=== PATIENT | male | born 1990 | race Caucasian/White ===

== ENCOUNTER 2020-04-12 14:06 | Observation (INO) ==
[2020-04-12] MEDS ORDERED: Ondansetron ODT 4 MG TAB.RAPDIS SL ONE (14:48)
[2020-04-12] MEDS ORDERED: CloNIDine Patch 0.1 MG PATCH (WEEKLY) TD STA (14:48)
[2020-04-12] MEDS ORDERED: hydrOXYzine pamoate 25 MG CAPSULE PO STA (14:49)
[2020-04-12 14:52] LABS: Bilirubin,Urine Negative (Negative); Blood,Urine Negative (Negative); Clarity,Urine Clear (Clear); Color,Urine Light-Yellow (Yellow); Glucose,Urine (UA) Normal (Normal); Ketones,Urine Negative (Negative); Leukocyte Esterase,Urine Negative (Negative); Nitrite,Urine Negative (Negative); PH,Urine 7.5 pH Units (5.0-8.0); Protein,Urine Trace mg/dL (Neg-Trace); Specific Gravity,Urine 1.018 (1.010-1.025); Urobilinogen,Urine Normal (Normal)
[2020-04-12] MEDS ORDERED: cloNIDine HCL 0.1 MG TABLET PO ONE (14:52)
[2020-04-12 15:02] LABS: Basophils # 0.1 K/mcL (0.0-0.2); Basophils % 0.5 %; Eosinophils % 0.3 %; Hematocrit 41.5 % (37.5-50.1); Immature Granulocytes % 0.3 % (0-4); Lymphocytes # 2.4 K/mcL (0.6-4.6); Lymphocytes % 24.2 %; Mean Corpuscular HGB Conc 33.7 g/dL (31.6-35.5); Mean Corpuscular Volume 85.9 fL (83.0-100.0); Monocytes # 0.5 K/mcL (0.0-1.3); Monocytes % 5.3 %; Platelet Count 313 K/mcL (140-400); Red Blood Count 4.83 M/mcL (4.19-5.50); Red Cell Distribution Width 12.5 % (11.5-14.5); Segmented Neutrophils % 69.4 %; White Blood Count 10.1 K/mcL (4.3-11.1)
[2020-04-12 15:04] LABS: Amphetamine Screen,Urine Positive ng/mL (Cutoff=1000); Barbiturate Screen,Urine Negative ng/mL (Cutoff=200); Benzodiazepines Screen,Urine Negative ng/mL (Cutoff=200); Cannabinoid Screen,Urine Negative ng/mL (Cutoff = 50); Cocaine Screen,Urine Negative ng/mL (Cutoff= 300); Opiate Screen,Urine Negative ng/mL (Cutoff=300); Phencyclidine Screen,Urine Negative ng/mL (Cutoff=25)
[2020-04-12 15:22] LABS: Acetaminophen < 10 mcg/mL (10-20); BUN/Creatinine Ratio 19 (6-26); Blood Urea Nitrogen 15 mg/dL (6-20); Calcium 10.1 mg/dL (8.6-10.3); Carbon Dioxide 25 mEq/L (23-29); Chloride 109 mEq/L (98-107); Chol/HDL Ratio 3.5 (0-4.9); Cholesterol 152 mg/dL (< 200); Ethanol < 10 mg/dL (Less than 10); Glucose 98 mg/dL (70-105); HDL Cholesterol 43 mg/dL (40-59); LDL Cholesterol,Calculated 87 mg/dL (< 100); Osmolality,Calculated 293 (280-300); Potassium 3.6 mEq/L (3.5-5.1); Salicylate < 2.5 mg/dL (15.0-30.0); Sodium 141 mEq/L (136-145); Triglycerides 112 mg/dL (< 150); eGFR For African Americans > 60 (> 60); eGFR For Non-African Americans > 60 (> 60)
[2020-04-12 15:43] LABS: Estimated Average Glucose 123 mg/dl
[2020-04-12 15:45] LABS: Thyroid Stimulating Hormone 0.161 mcIU/mL (0.340-5.600)
[2020-04-12] MEDS ORDERED: MOM Conc 10 ML UD.LIQ PO PRN (16:52)
[2020-04-12] MEDS ORDERED: Mag Hydrox/Al Hydrox/Simeth 30 ML UDC PO PRN (16:52)
[2020-04-12] MEDS ORDERED: haloperidoL 5 MG TABLET PO PRN (16:52)
[2020-04-12] MEDS ORDERED: traZODone 50 MG TABLET PO PRN (16:52)
[2020-04-12] MEDS ORDERED: *HR* LORazepam 2 MG/ML VIAL IM PRN (16:52)
[2020-04-12] MEDS ORDERED: Haloperidol Lactate 5 MG/ML VIAL IM PRN (16:52)
[2020-04-12] MEDS ORDERED: Ibuprofen 400 MG TABLET PO PRN (16:52)
[2020-04-12] MEDS ORDERED: *HR* LORazepam 1 MG TABLET PO PRN (16:52)
[2020-04-12] MEDS ORDERED: cloNIDine HCL 0.1 MG TABLET PO PRN (18:09)
[2020-04-12] MEDS: Nicotine 21 MG PATCH.TD24 TD SCH (19:40)
[2020-04-12] MEDS: hydrOXYzine pamoate 25 MG CAPSULE PO PRN (20:41)
[2020-04-12] MEDS: QUEtiapine Fumarate 25 MG TABLET PO PRN ×2 (20:41→22:56)
[2020-04-13] MEDS: hydrOXYzine pamoate 25 MG CAPSULE PO PRN (02:05)
[2020-04-13 07:48] VITALS: BP 154/93
[2020-04-13] MEDS: Nicotine 21 MG PATCH.TD24 TD SCH (08:57)
== END 2020-04-13 11:30 | disposition home or self-care (01) ==
LOC: 1ANU 14:06 → EMEROOARM 14:06 → 1ANU 18:10
PROVIDERS: ADMIT Psychiatry & Neurology Psychiatry; ATTEND Psychiatry & Neurology Psychiatry